=== PATIENT | female | born 2000 | race Caucasian/White ===

== ENCOUNTER → 2020-05-04 | Outpatient (REF) | payer BC, OTHER | LOC: M LAB REF 10:34 | PROVIDERS: ATTEND Physician Assistant Medical | DX: Z20.828 Contact with and (suspected) exposure to other viral communicable diseases (principal) ==

== ENCOUNTER → 2021-11-26 | Outpatient (REF) | payer OTHER | LOC: M PLALAB 08:00 | PROVIDERS: ATTEND Advanced Practice Midwife | DX: Z12.4 Encounter for screening for malignant neoplasm of cervix (principal) ==

== ENCOUNTER → 2022-07-08 | Outpatient (CLI) | payer BC, OTHER ==
[~2022-07-08] MED LIST: LEXA1TAB2; TRI-TAB
== END ==
LOC: M RAD 09:30
PROVIDERS: ATTEND Specialist
DX: D75.839 Thrombocytosis, unspecified (principal)

== ENCOUNTER → 2022-08-17 | Outpatient (CLI) | payer BC, OTHER | LOC: M LAB 09:58 | PROVIDERS: ATTEND Nurse Practitioner | DX: D75.839 Thrombocytosis, unspecified (principal) ==

== ENCOUNTER 2025-09-14 17:16 | Emergency (ER) | payer OTHER ==
[~2025-09-14] VITALS: Ht 162.6 cm; Wt 82.3 kg
[~2025-09-14 17:16] MED LIST changes: +NAPR-1405
[2025-09-14 18:01] LABS: KETONE, URINE AUTO RFX NEGATIVE (NEGATIVE); LEUKOCYTE ESTERASE UR AUTO RFX TRACE (NEGATIVE); MUCUS, URINE RFX SMALL (NEGATIVE); NITRITE, URINE AUTO RFX NEGATIVE (NEGATIVE); RBC, URINE AUTO RFX 2 /HPF (0-3); SQUAM EPITHELIAL CELL UR AURFX 5 /HPF (0-6); WBC, URINE AUTO RFX 7 /HPF (0-3)
[2025-09-14 18:03] LABS: BASO # 0.0 10^3/uL (0.0-0.2); BASO % 0.3 % (0.0-1.0); EOS # 0.1 10^3/uL (0.0-0.5); EOS % 1.6 % (0.0-3.0); LYMPH # 1.7 10^3/uL (1.5-5.0); LYMPH % 19.2 % (24.0-44.0); MONO # 0.7 10^3/uL (0.0-0.8); MONO % 8.1 % (2.0-8.0); NEUTROPHILS # 6.3 10^3/uL (1.5-8.5); NEUTROPHILS % 70.5 % (36.0-66.0); PLATELET COUNT, AUTOMATED 368 10^3/uL (150-450)
[2025-09-14 18:33] LABS: HCG, SERUM QUALITATIVE NEGATIVE (NEGATIVE)
[2025-09-14 18:34] LABS: ALT/SGPT 735 U/L (7.0-40); AST/SGOT 595 U/L (<34); CALCIUM LEVEL 8.2 MG/DL (8.5-10.1); CARBON DIOXIDE LEVEL 23 MMOL/L (20-31); CHLORIDE LEVEL 108 MMOL/L (98-107); CREATININE FOR GFR 0.78 MG/DL (0.55-1.30); GLOMERULAR FILTRATION RATE > 90.0 (>60); POTASSIUM SERUM 4.3 MMOL/L (3.5-5.1); SODIUM LEVEL 140 MMOL/L (136-145)
[2025-09-14] MEDS: KETOROLAC 30 MG/ML 1 ML VIAL IV ONE (19:19)
[2025-09-14] MEDS: NS (Normal Saline) 0.9% 1,000 ML IV ONE ×2 (19:20→21:23)
[2025-09-14] MEDS ORDERED: ISOVUE-370 76% 100 ML VIAL As Ordered ONE (20:56)
[2025-09-14] MEDS: PIPERACILLIN/TAZOBACTAM SOD 4.5 GM in DEXTROSE 5% (D5W) ADV/MINI-BAG 50 ML IV ONE (23:56)
[2025-09-14] MEDS: NS (Normal Saline) 0.9% 1,000 ML IV SCH (23:56)
[2025-09-15] MEDS: PIPERACILLIN/TAZOBACTAM SOD 4.5 GM in DEXTROSE 5% (D5W) ADV/MINI-BAG 50 ML IV ONE (06:30)
[2025-09-15 06:33] VITALS: BP 121/64; TEMP 97.4; O2SAT 100
== END 2025-09-15 06:37 | disposition short-term general hospital (02) ==
LOC: M ED 17:16
DX: K85.90 Acute pancreatitis without necrosis or infection, unspecified (principal); K80.20 Calculus of gallbladder without cholecystitis without obstruction; F41.9 Anxiety disorder, unspecified; Z79.899 Other long term (current) drug therapy
CPT/HCPCS: 74177; 76705; 80048; 80076; 81001; 83690; 84703; 85025; 87040; 87086; 96361; 96365; 96375; 99285; J1885; J2543; Q9967